=== PATIENT | female | born 1955 | race Caucasian/White ===

== ENCOUNTER 2024-09-19 06:18 | Inpatient (IN) | payer MEDICARE, MEDICAID ==
[~2024-09-19] VITALS: Ht 160 cm; Wt 115.5 kg
[~2024-09-19 06:18] MED LIST: ASPI-1198 PO; DIVA-112 PO; FERR325T27 PO; LEVO125 PO; METF1000 PO; NYST30CR9 TP; OLAN10TA26 PO; SIMV-261 PO
[2024-09-19] MEDS ORDERED: SIMV-46 PO (07:00)
[2024-09-19] MEDS ORDERED: SEMA1PEN3 SQ (07:00)
[2024-09-19] MEDS ORDERED: OLAN10TA74 PO (07:00)
[2024-09-19] MEDS ORDERED: CALC-1271 PO (07:00)
[2024-09-19] MEDS ORDERED: HYDR12.54 PO (07:00)
[2024-09-19] MEDS ORDERED: OXYB5TAB20 PO (07:00)
[2024-09-19] MEDS ORDERED: LEVO137T2 PO (07:00)
[2024-09-19] MEDS ORDERED: METO25 PO (07:00)
[2024-09-19] MEDS ORDERED: ASPI-1444 PO (07:00)
[2024-09-19] MEDS ORDERED: OMEP20CA12 PO (07:00)
[2024-09-19] MEDS ORDERED: LOSA-382 PO (07:00)
[2024-09-19] MEDS ORDERED: METF-445 PO (07:00)
[2024-09-19 07:44] LABS: BASOPHILS % (AUTO) 0.4 % (0.0-2.0); EOSINOPHILS % (AUTO) 0.9 % (1.0-6.0); HEMOGLOBIN 11.1 g/dL (12.0-16.0); LYMPHOCYTES % (AUTO) 8.9 % (22.0-44.0); MEAN CORPUSCULAR HEMOGLOBIN 27.5 pg (26.0-34.0); MEAN CORPUSCULAR HGB CONC 32.8 G/dL (31.0-37.0); MEAN CORPUSCULAR VOLUME 84 fL (80-100); MONOCYTES # (AUTO) 0.8 K/uL (0.1-1.0); MONOCYTES % (AUTO) 6.6 % (2.0-9.0); NEUTROPHILS # (AUTO) 9.5 K/uL (1.8-7.7); NEUTROPHILS % (AUTO) 83.2 % (40.0-70.0); PLATELET COUNT (AUTO) 323 K/uL (150-450); RED BLOOD CELL COUNT(AUTO) 4.04 MIL/uL (4.00-5.20); WHITE BLOOD COUNT (AUTO) 11.4 K/uL (4.5-11.0)
[2024-09-19] MEDS ORDERED: haloperidoL 5 MG TABLET PO PRN (07:45)
[2024-09-19 07:49] LABS: CALCIUM, TOTAL 8.5 mg/dL (8.8-10.5); CREATININE 1.06 mg/dL (0.60-1.30); POTASSIUM 3.4 mmol/L (3.5-5.1)
[2024-09-19 10:55] VITALS: O2SAT 100
[2024-09-19 10:58] LABS: COVID AG,FIA SOURCE NASAL SWAB
[2024-09-19 11:32] LABS: APPEARANCE,URINE CLEAR (CLEAR); BILIRUBIN,URINE NEGATIVE (NEGATIVE); COLOR,URINE LIGHT YELLOW (YELLOW); GLUCOSE, URINE (UA) NEGATIVE (NEGATIVE); KETONES,URINE NEGATIVE (NEGATIVE); LEUKOCYTE ESTERASE ,URINE SMALL (NEGATIVE); NITRATE,URINE POSITIVE (NEGATIVE); OCCULT BLOOD,URINE NEGATIVE (NEGATIVE); PH,URINE 6.5 (5.0-8.0); PH,URINE DRUG SCREEN 6.5 (5.0-8.0); PROTEIN,URINE TRACE mg/dL (NEGATIVE); SPECIFIC GRAVITIY, URINE 1.004 (1.003-1.030); UROBILINOGEN,URINE <=1.0 mg/dL (<=1.0)
[2024-09-19 11:42] LABS: ALCOHOL, URINE DRUG SCREEN NEGATIVE (NEGATIVE); AMPHET/METH SCREEN,URINE NEGATIVE (NEGATIVE); BARBITURATE SCREEN, URINE NEGATIVE (NEGATIVE); BENZODIAZEPINES SCREEN,URINE NEGATIVE (NEGATIVE); CANNABINOID SCREEN,URINE NEGATIVE (NEGATIVE); COCAINE SCREEN,URINE NEGATIVE (NEGATIVE); METHADONE SCREEN, URINE NEGATIVE (NEGATIVE); OPIATE SCREEN,URINE NEGATIVE (NEGATIVE); PHENCYCLIDINE SCREEN,URINE NEGATIVE (NEGATIVE)
[2024-09-19 11:49] LABS: BACTERIA,URINE Many /HPF (None Seen); RBC,URINE None Seen /HPF (0-2); SQUAMOUS EPITHELIAL CELL,UR Few /LPF (None Seen)
[2024-09-19 11:55] LABS: SARS-COV2 (COVID) ANTIGEN,FIA Negative (Negative)
[2024-09-19 12:44] VITALS: BP 132/89; PULSE 96; RESP 16; TEMP 98.2; O2SAT 96
[2024-09-19 13:45] LABS: GLUCOMETER DEV NAME(LOC) 3EX.2; GLUCOSE,POINT OF CARE 145 MG/DL (70-110)
[2024-09-19] MEDS ORDERED: CloNIDine HCL 0.1 MG TABLET PO PRN (14:30)
[2024-09-19] MEDS ORDERED: DEXTROSE 50%-WATER 25 GM/50 ML SYRINGE IVP PRN (14:30)
[2024-09-19] MEDS ORDERED: ALBUTEROL SULFATE HFA 90 MCG/PUFF 8 GM INHALER IH PRN (14:30)
[2024-09-19] MEDS ORDERED: DOCUSATE SODIUM 100 MG CAPSULE PO PRN (14:30)
[2024-09-19] MEDS ORDERED: MAGNESIUM HYDROXIDE SUSPENSION 30 ML UDCUP PO PRN (14:30)
[2024-09-19] MEDS ORDERED: OMEPRAZOLE 20 MG CAPSULE PO PRN (14:30)
[2024-09-19] MEDS ORDERED: PETROLATUM,WHITE 28 GM JELLY TP PRN (14:30)
[2024-09-19] MEDS ORDERED: MAG HYDROX/ALUMINUM HYD/SIMETH ES 30 ML SUSPENSION UDCUP PO PRN (14:30)
[2024-09-19] MEDS ORDERED: BENZOCAINE/MENTHOL [CEPACOL] LOZENGE PO PRN (14:30)
[2024-09-19] MEDS ORDERED: BACITRACIN 28 GM OINTMENT TP PRN (14:30)
[2024-09-19] MEDS: METOPROLOL TARTRATE 25 MG TABLET PO SCH (16:32)
[2024-09-19] MEDS: oxyBUTYnin chloride 5 MG TABLET PO SCH (16:32)
[2024-09-19] MEDS: MetFORMIN HCL 850 MG TABLET PO SCH (16:32)
[2024-09-19] MEDS: CEPHALEXIN MONOHYDRATE 500 MG CAPSULE PO SCH (17:27)
[2024-09-19] MEDS: POTASSIUM CHLORIDE 20 MEQ ER TABLET PO ONE (17:27)
[2024-09-19] MEDS: SODIUM CHLORIDE 1 GM TABLET PO SCH (17:27)
[2024-09-19] MEDS: INSULIN LISPRO 100 UNITS/ML SQ PRN (17:34)
[2024-09-19 21:06] LABS: GLUCOMETER DEV NAME(LOC) 3E.I 2; GLUCOSE,POINT OF CARE 146 MG/DL (70-110)
[2024-09-19] MEDS: ZOLPIDEM TARTRATE 10 MG TABLET PO PRN (21:15)
[2024-09-19] MEDS: LORazepam 2 MG TABLET PO PRN (21:15)
[2024-09-19] MEDS: SIMVASTATIN 40 MG TABLET PO SCH (21:18)
[2024-09-20 00:12] VITALS: RESP 18; O2SAT 97
[2024-09-20] MEDS: LEVOTHYROXINE SODIUM 137 MCG TABLET PO SCH (06:30)
[2024-09-20 06:31] LABS: GLUCOMETER DEV NAME(LOC) 3E.I 2; GLUCOSE,POINT OF CARE 98 MG/DL (70-110)
[2024-09-20 08:00] VITALS: BP 113/72; PULSE 100; RESP 16; TEMP 98; O2SAT 97
[2024-09-20 08:48] LABS: HEMOGLOBIN A1C 6.6 % (3.8-5.6)
[2024-09-20 08:53] LABS: CHOL/HDL RATIO 2.3 (3.9-5.7); POTASSIUM 3.7 mmol/L (3.5-5.1)
[2024-09-20] MEDS: LITHIUM CARBONATE 300 MG CAPSULE PO SCH (11:02)
[2024-09-20] MEDS: LOSARTAN POTASSIUM 50 MG TABLET PO SCH (11:02)
[2024-09-20] MEDS: ASPIRIN 81 MG CHEWABLE TABLET PO SCH (11:02)
[2024-09-20] MEDS: RisperiDONE 2 MG TABLET PO SCH (11:03)
[2024-09-20 12:15] LABS: GLUCOMETER DEV NAME(LOC) 3E.I 2; GLUCOSE,POINT OF CARE 142 MG/DL (70-110)
[2024-09-20] MEDS: LOPERAMIDE HCL 2 MG CAPSULE PO PRN (13:19)
[2024-09-20 18:06] LABS: GLUCOMETER DEV NAME(LOC) 3E.I 2; GLUCOSE,POINT OF CARE 146 MG/DL (70-110)
[2024-09-20 20:41] LABS: GLUCOMETER DEV NAME(LOC) 3E.I 2; GLUCOSE,POINT OF CARE 138 MG/DL (70-110)
[2024-09-20 23:00] VITALS: BP 106/63; PULSE 106; RESP 18; TEMP 98.1; O2SAT 95
[2024-09-21 07:06] LABS: GLUCOMETER DEV NAME(LOC) 3E.I 2; GLUCOSE,POINT OF CARE 153 MG/DL (70-110)
[2024-09-21 12:50] VITALS: BP 130/81; PULSE 75; RESP 16; TEMP 98; O2SAT 97
[2024-09-21 20:16] LABS: GLUCOMETER DEV NAME(LOC) 3E.I 2; GLUCOSE,POINT OF CARE 169 MG/DL (70-110)
[2024-09-21 21:50] VITALS: BP 126/86; PULSE 90; RESP 18; TEMP 97.6; O2SAT 98
[2024-09-21] MEDS: IBUPROFEN 600 MG TABLET PO PRN (21:54)
[2024-09-21 22:41] VITALS: RESP 18
[2024-09-21 22:54] VITALS: RESP 18
[2024-09-22 06:11] LABS: GLUCOMETER DEV NAME(LOC) 3E.I 2; GLUCOSE,POINT OF CARE 154 MG/DL (70-110)
[2024-09-22 09:00] VITALS: BP 106/69; PULSE 72; RESP 17; TEMP 97.6; O2SAT 97
[2024-09-22 11:35] LABS: GLUCOMETER DEV NAME(LOC) 3EX.2; GLUCOSE,POINT OF CARE 196 MG/DL (70-110)
[2024-09-22 17:21] LABS: GLUCOMETER DEV NAME(LOC) 3EX.2; GLUCOSE,POINT OF CARE 179 MG/DL (70-110)
[2024-09-22 17:30] VITALS: BP 140/99; PULSE 95; RESP 18; TEMP 97.7; O2SAT 100
[2024-09-22 21:50] LABS: GLUCOMETER DEV NAME(LOC) 3EX.2; GLUCOSE,POINT OF CARE 162 MG/DL (70-110)
[2024-09-22 22:25] VITALS: BP 115/54; PULSE 100; RESP 18; TEMP 97.8; O2SAT 95
[2024-09-22 22:44] VITALS: BP 110/60; PULSE 100; RESP 18; TEMP 97.5; O2SAT 97
[2024-09-22] MEDS: ACETAMINOPHEN 325 MG TABLET PO PRN (22:44)
[2024-09-24 02:58] VITALS: RESP 17; TEMP 98.1
[2024-09-24 09:39] VITALS: BP 129/66; PULSE 109; RESP 18; O2SAT 96
[2024-09-24 12:05] LABS: GLUCOMETER DEV NAME(LOC) 3EX.2; GLUCOSE,POINT OF CARE 143 MG/DL (70-110)
[2024-09-24 20:00] VITALS: BP 123/77; PULSE 102; RESP 18; TEMP 98.3; O2SAT 98
[2024-09-25 20:37] VITALS: BP 139/66; PULSE 83; RESP 18; TEMP 97.2; O2SAT 95
[2024-09-26 09:53] VITALS: RESP 18
[2024-09-26] MEDS ORDERED: BRIM5DRO23 OU (12:23)
[2024-09-26] MEDS ORDERED: DICL100G60 TP (12:23)
[2024-09-26] MEDS: haloperidoL LACTATE 5 MG/ML VIAL IM ONE (12:50)
[2024-09-26 14:50] LABS: BASOPHILS % (AUTO) 0.6 % (0.0-2.0); EOSINOPHILS % (AUTO) 0.9 % (1.0-6.0); HEMATOCRIT 33.1 % (36-46); HEMOGLOBIN 11.1 g/dL (12.0-16.0); LYMPHOCYTES % (AUTO) 10.8 % (22.0-44.0); MEAN CORPUSCULAR HEMOGLOBIN 28.1 pg (26.0-34.0); MEAN CORPUSCULAR HGB CONC 33.5 G/dL (31.0-37.0); MEAN CORPUSCULAR VOLUME 84 fL (80-100); MONOCYTES # (AUTO) 0.8 K/uL (0.1-1.0); MONOCYTES % (AUTO) 9.4 % (2.0-9.0); NEUTROPHILS # (AUTO) 7.1 K/uL (1.8-7.7); NEUTROPHILS % (AUTO) 78.3 % (40.0-70.0); PLATELET COUNT (AUTO) 468 K/uL (150-450); RED BLOOD CELL COUNT(AUTO) 3.93 MIL/uL (4.00-5.20); RED CELL DISTRIBUTION WIDTH 15.3 % (11.5-14.5)
[2024-09-26 14:57] LABS: CALCIUM, TOTAL 9.1 mg/dL (8.8-10.5); CREATININE 1.18 mg/dL (0.60-1.30); POTASSIUM 4.4 mmol/L (3.5-5.1)
[2024-09-26 15:01] LABS: ALBUMIN 2.4 g/dL (3.4-5.0); BILIRUBIN,TOTAL 1.7 mg/dL (0.1-1.0); TOTAL PROTEIN, SERUM 7.4 g/dL (6.4-8.2)
[2024-09-26 17:21] LABS: GLUCOMETER DEV NAME(LOC) 3EX.2; GLUCOSE,POINT OF CARE 151 MG/DL (70-110)
[2024-09-26 23:38] VITALS: BP 103/66; PULSE 99; RESP 18; TEMP 97.8; O2SAT 98
[2024-09-27 07:11] LABS: GLUCOMETER DEV NAME(LOC) 3E.I 2; GLUCOSE,POINT OF CARE 162 MG/DL (70-110)
[2024-09-27 10:41] VITALS: RESP 17
[2024-09-27 22:07] VITALS: BP 155/73; PULSE 102; RESP 18; O2SAT 96
[2024-09-28 07:15] LABS: GLUCOMETER DEV NAME(LOC) 3EX.2; GLUCOSE,POINT OF CARE 185 MG/DL (70-110)
[2024-09-28 10:46] VITALS: BP 12/76; PULSE 94; RESP 18; TEMP 97.6; O2SAT 97
[2024-09-28 12:30] LABS: GLUCOMETER DEV NAME(LOC) 3EX.2; GLUCOSE,POINT OF CARE 152 MG/DL (70-110)
[2024-09-28 16:41] LABS: GLUCOMETER DEV NAME(LOC) 3EX.2; GLUCOSE,POINT OF CARE 145 MG/DL (70-110)
[2024-09-28 22:18] VITALS: BP 156/86; PULSE 91; RESP 16; TEMP 98; O2SAT 97
[2024-09-29 06:20] LABS: GLUCOMETER DEV NAME(LOC) 3EX.2; GLUCOSE,POINT OF CARE 168 MG/DL (70-110)
[2024-09-29 09:56] VITALS: BP 111/74; PULSE 90; RESP 18; TEMP 98; O2SAT 95
[2024-09-29 12:51] LABS: GLUCOMETER DEV NAME(LOC) 3EX.2; GLUCOSE,POINT OF CARE 179 MG/DL (70-110)
[2024-09-29 17:20] LABS: GLUCOMETER DEV NAME(LOC) 3EX.2; GLUCOSE,POINT OF CARE 170 MG/DL (70-110)
[2024-09-29 20:50] LABS: GLUCOMETER DEV NAME(LOC) 3EX.2; GLUCOSE,POINT OF CARE 130 MG/DL (70-110)
[2024-09-29 21:52] VITALS: BP 118/67; PULSE 92; RESP 17; TEMP 97.5; O2SAT 100
[2024-09-30 06:31] LABS: GLUCOMETER DEV NAME(LOC) 3EX.2; GLUCOSE,POINT OF CARE 164 MG/DL (70-110)
[2024-09-30 11:56] LABS: GLUCOMETER DEV NAME(LOC) 3EX.2; GLUCOSE,POINT OF CARE 165 MG/DL (70-110)
[2024-09-30 17:11] LABS: GLUCOMETER DEV NAME(LOC) 3E.I 2; GLUCOSE,POINT OF CARE 137 MG/DL (70-110)
[2024-09-30 20:27] VITALS: BP 118/70; PULSE 82; RESP 18; TEMP 98.1; O2SAT 98
[2024-09-30 21:00] LABS: GLUCOMETER DEV NAME(LOC) 3E.I 2; GLUCOSE,POINT OF CARE 137 MG/DL (70-110)
[2024-10-01 06:31] LABS: GLUCOMETER DEV NAME(LOC) 3E.I 2; GLUCOSE,POINT OF CARE 149 MG/DL (70-110)
[2024-10-01 10:02] VITALS: BP 121/65; PULSE 108; RESP 19; TEMP 97; O2SAT 95
[2024-10-01 13:30] LABS: GLUCOMETER DEV NAME(LOC) 3E.I 2; GLUCOSE,POINT OF CARE 124 MG/DL (70-110)
[2024-10-01 20:06] LABS: GLUCOMETER DEV NAME(LOC) 3E.I 2; GLUCOSE,POINT OF CARE 142 MG/DL (70-110)
[2024-10-01 20:40] LABS: GLUCOMETER DEV NAME(LOC) 3E.I 2; GLUCOSE,POINT OF CARE 128 MG/DL (70-110)
[2024-10-01 20:58] VITALS: BP 98/64; PULSE 92; RESP 18; TEMP 97.8; O2SAT 96
[2024-10-02 06:36] LABS: GLUCOMETER DEV NAME(LOC) 3E.I 2; GLUCOSE,POINT OF CARE 155 MG/DL (70-110)
[2024-10-02 08:36] VITALS: BP 112/61; PULSE 104; RESP 16; TEMP 97.6; O2SAT 95
[2024-10-02 12:05] LABS: GLUCOMETER DEV NAME(LOC) 3E.I 2; GLUCOSE,POINT OF CARE 174 MG/DL (70-110)
[2024-10-02 16:56] LABS: GLUCOMETER DEV NAME(LOC) 3E.I 2; GLUCOSE,POINT OF CARE 114 MG/DL (70-110)
[2024-10-02 17:20] LABS: C.DIFF GDH ANTIGEN, Stool Negative (Negative); C.DIFF TOXINS A&B, Stool Negative (Negative)
[2024-10-02 20:20] LABS: GLUCOMETER DEV NAME(LOC) 3E.I 2; GLUCOSE,POINT OF CARE 132 MG/DL (70-110)
[2024-10-02 21:41] VITALS: RESP 18
[2024-10-03 06:31] LABS: GLUCOMETER DEV NAME(LOC) 3E.I 2; GLUCOSE,POINT OF CARE 152 MG/DL (70-110)
[2024-10-03 12:21] VITALS: RESP 18
[2024-10-03 13:20] LABS: GLUCOMETER DEV NAME(LOC) 3E.I 2; GLUCOSE,POINT OF CARE 125 MG/DL (70-110)
[2024-10-03 21:56] LABS: GLUCOMETER DEV NAME(LOC) 3E.I 2; GLUCOSE,POINT OF CARE 143 MG/DL (70-110)
[2024-10-03 21:56] LABS: GLUCOMETER DEV NAME(LOC) 3E.I 2; GLUCOSE,POINT OF CARE 127 MG/DL (70-110)
[2024-10-03 21:58] VITALS: RESP 18
[2024-10-04 08:30] VITALS: BP 112/79; PULSE 98; RESP 18; TEMP 97.8; O2SAT 98
[2024-10-04 12:16] LABS: GLUCOMETER DEV NAME(LOC) 3E.I 2; GLUCOSE,POINT OF CARE 150 MG/DL (70-110)
[2024-10-04 16:35] LABS: GLUCOMETER DEV NAME(LOC) 3E.I 2; GLUCOSE,POINT OF CARE 108 MG/DL (70-110)
[2024-10-04 17:30] VITALS: BP 132/73; PULSE 81
[2024-10-04 20:29] VITALS: BP 114/56; PULSE 83; RESP 19; TEMP 97.6; O2SAT 96
[2024-10-04 20:55] LABS: GLUCOMETER DEV NAME(LOC) 3E.I 2; GLUCOSE,POINT OF CARE 132 MG/DL (70-110)
[2024-10-05 06:01] LABS: GLUCOMETER DEV NAME(LOC) 3E.I 2; GLUCOSE,POINT OF CARE 125 MG/DL (70-110)
[2024-10-05 10:54] VITALS: BP 117/58; PULSE 74; RESP 18; TEMP 97.6; O2SAT 96
[2024-10-05 12:06] LABS: GLUCOMETER DEV NAME(LOC) 3E.I 2; GLUCOSE,POINT OF CARE 120 MG/DL (70-110)
[2024-10-05 17:25] LABS: GLUCOMETER DEV NAME(LOC) 3E.I 2; GLUCOSE,POINT OF CARE 119 MG/DL (70-110)
[2024-10-05 20:50] LABS: GLUCOMETER DEV NAME(LOC) 3E.I 2; GLUCOSE,POINT OF CARE 111 MG/DL (70-110)
[2024-10-05 21:43] VITALS: BP 117/56; PULSE 94; RESP 17; TEMP 97.7; O2SAT 95
[2024-10-06 06:21] LABS: GLUCOMETER DEV NAME(LOC) 3E.I 2; GLUCOSE,POINT OF CARE 123 MG/DL (70-110)
[2024-10-06 08:25] VITALS: BP 106/65; PULSE 94; RESP 17; TEMP 98.2; O2SAT 98
[2024-10-06] MEDS: LACTOBACILLUS ACIDOPHILUS/BULGARICUS GRANULES PACKET PO SCH (09:47)
[2024-10-06 12:25] LABS: GLUCOMETER DEV NAME(LOC) 3E.I 2; GLUCOSE,POINT OF CARE 133 MG/DL (70-110)
[2024-10-06 16:53] VITALS: BP 95/75; PULSE 95; RESP 18; O2SAT 97
[2024-10-06 18:00] LABS: GLUCOMETER DEV NAME(LOC) 3E.I 2; GLUCOSE,POINT OF CARE 122 MG/DL (70-110)
[2024-10-06 22:48] VITALS: BP 120/61; PULSE 88; RESP 18; TEMP 97.1; O2SAT 98
[2024-10-06 23:36] LABS: GLUCOMETER DEV NAME(LOC) 3E.I 2; GLUCOSE,POINT OF CARE 124 MG/DL (70-110)
[2024-10-07 07:00] LABS: GLUCOMETER DEV NAME(LOC) 3E.I 2; GLUCOSE,POINT OF CARE 121 MG/DL (70-110)
[2024-10-07 07:11] LABS: BASOPHILS % (AUTO) 0.2 % (0.0-2.0); EOSINOPHILS % (AUTO) 1.8 % (1.0-6.0); HEMOGLOBIN 11.1 g/dL (12.0-16.0); LYMPHOCYTES # (AUTO) 1.1 K/uL (1.0-4.8); LYMPHOCYTES % (AUTO) 10.2 % (22.0-44.0); MEAN CORPUSCULAR HEMOGLOBIN 28.6 pg (26.0-34.0); MEAN CORPUSCULAR HGB CONC 33.7 G/dL (31.0-37.0); MEAN CORPUSCULAR VOLUME 85 fL (80-100); MONOCYTES # (AUTO) 0.9 K/uL (0.1-1.0); NEUTROPHILS # (AUTO) 8.7 K/uL (1.8-7.7); NEUTROPHILS % (AUTO) 79.8 % (40.0-70.0); PLATELET COUNT (AUTO) 648 K/uL (150-450); RED BLOOD CELL COUNT(AUTO) 3.89 MIL/uL (4.00-5.20); RED CELL DISTRIBUTION WIDTH 16.1 % (11.5-14.5); WHITE BLOOD COUNT (AUTO) 10.9 K/uL (4.5-11.0)
[2024-10-07 07:22] LABS: ALBUMIN 2.4 g/dL (3.4-5.0); BILIRUBIN,TOTAL 0.8 mg/dL (0.1-1.0); CALCIUM, TOTAL 9.6 mg/dL (8.8-10.5); CREATININE 1.99 mg/dL (0.60-1.30); MAGNESIUM 1.8 mg/dL (1.80-2.40); PHOSPHORUS 4.4 mg/dL (2.5-4.9); POTASSIUM 4.5 mmol/L (3.5-5.1); TOTAL PROTEIN, SERUM 7.1 g/dL (6.4-8.2)
[2024-10-07] MEDS: NITROFURANTOIN MONOHYD/M-CRYST 100 MG CAPSULE [MACROBID] PO SCH (08:20)
[2024-10-07 10:15] VITALS: BP 123/74; PULSE 96; RESP 16; TEMP 97.8; O2SAT 95
[2024-10-07 11:41] LABS: GLUCOMETER DEV NAME(LOC) 3E.I 2; GLUCOSE,POINT OF CARE 128 MG/DL (70-110)
[2024-10-07 17:07] VITALS: BP 107/51; PULSE 72; RESP 18; TEMP 98; O2SAT 95
[2024-10-07 17:55] LABS: GLUCOMETER DEV NAME(LOC) 3E.I 2; GLUCOSE,POINT OF CARE 130 MG/DL (70-110)
[2024-10-07 20:36] VITALS: BP 90/53; PULSE 83; RESP 18; TEMP 98.2; O2SAT 95
[2024-10-07 20:51] LABS: GLUCOMETER DEV NAME(LOC) 3E.I 2; GLUCOSE,POINT OF CARE 98 MG/DL (70-110)
[2024-10-08 06:10] LABS: GLUCOMETER DEV NAME(LOC) 3E.I 2; GLUCOSE,POINT OF CARE 110 MG/DL (70-110)
[2024-10-08 08:30] VITALS: BP 111/57; PULSE 94; RESP 18; TEMP 98; O2SAT 95
[2024-10-08] MEDS: ONDANSETRON 4 MG TABLET PO PRN (10:15)
[2024-10-08 11:31] LABS: GLUCOMETER DEV NAME(LOC) 3E.I 2; GLUCOSE,POINT OF CARE 116 MG/DL (70-110)
[2024-10-08 17:53] VITALS: BP 100/51; PULSE 73; RESP 18; TEMP 97.7; O2SAT 96
[2024-10-08 18:21] LABS: GLUCOMETER DEV NAME(LOC) 3EX.2; GLUCOSE,POINT OF CARE 116 MG/DL (70-110)
[2024-10-08 19:20] LABS: GLUCOMETER DEV NAME(LOC) 3E.I 2; GLUCOSE,POINT OF CARE 140 MG/DL (70-110)
[2024-10-08 20:36] LABS: GLUCOMETER DEV NAME(LOC) 3E.I 2; GLUCOSE,POINT OF CARE 132 MG/DL (70-110)
[2024-10-08 21:45] VITALS: BP 100/47; PULSE 78; RESP 16; TEMP 97.2; O2SAT 96
[2024-10-09 06:00] LABS: GLUCOMETER DEV NAME(LOC) 3E.I 2; GLUCOSE,POINT OF CARE 120 MG/DL (70-110)
[2024-10-09 08:16] LABS: ALBUMIN 2.3 g/dL (3.4-5.0); BILIRUBIN,TOTAL 0.6 mg/dL (0.1-1.0); CALCIUM, TOTAL 9.2 mg/dL (8.8-10.5); CREATININE 1.83 mg/dL (0.60-1.30); POTASSIUM 4.7 mmol/L (3.5-5.1); TOTAL PROTEIN, SERUM 6.7 g/dL (6.4-8.2)
[2024-10-09 08:59] VITALS: BP 100/63; PULSE 78; RESP 17; TEMP 97.7; O2SAT 99
[2024-10-09 11:45] LABS: GLUCOMETER DEV NAME(LOC) 3E.I 2; GLUCOSE,POINT OF CARE 119 MG/DL (70-110)
[2024-10-09 17:30] LABS: GLUCOMETER DEV NAME(LOC) 3E.I 2; GLUCOSE,POINT OF CARE 137 MG/DL (70-110)
[2024-10-10] MEDS ORDERED: ACID1GRA PO (02:05)
[2024-10-10] MEDS ORDERED: SODI100067 PO (02:10)
[2024-10-10] MEDS ORDERED: LITH300C3 PO (02:10)
[2024-10-10] MEDS ORDERED: NITR100C4 PO (02:10)
[2024-10-10] MEDS ORDERED: RISP-32 PO (02:10)
[2024-10-10] MEDS ORDERED: ACET-784 PO (02:10)
[2024-10-10] MEDS ORDERED: ALBU18HF7 PUFF (02:16)
[2024-10-10] MEDS ORDERED: BACI28.410 TP (02:18)
[2024-10-15] MEDS ORDERED: INSU100V SQ (13:19)
== END 2024-10-09 18:47 | disposition short-term general hospital (02) | DRG 885 ==
LOC: EMS 06:19 → UNDOADMIN 12:54 → 3EX 12:54
PROVIDERS: ADMIT Psychiatry & Neurology Psychiatry; ATTEND Psychiatry & Neurology Psychiatry
DX: F31.9 Bipolar disorder, unspecified (principal); E87.1 Hypo-osmolality and hyponatremia; N39.0 Urinary tract infection, site not specified; Z68.42 Body mass index [BMI] 45.0-49.9, adult; I10 Essential (primary) hypertension; F41.9 Anxiety disorder, unspecified; Z20.822 Contact with and (suspected) exposure to COVID-19; G47.00 Insomnia, unspecified; K21.9 Gastro-esophageal reflux disease without esophagitis; E66.01 Morbid (severe) obesity due to excess calories; E03.9 Hypothyroidism, unspecified; E11.9 Type 2 diabetes mellitus without complications; R19.7 Diarrhea, unspecified; E78.5 Hyperlipidemia, unspecified; Z74.01 Bed confinement status; M19.90 Unspecified osteoarthritis, unspecified site
CPT/HCPCS: 80048; 80053; 80061; 80178; 80307; 81001; 82962; 83036; 83735; 84100; 84132; 84145; 84295; 85025; 87077; 87086; 87186; 87324; 87449; 97163; 97167; 97530; 97535; 99285; G0378; G0480; J1630; J1631; Q0162